=== PATIENT | female | born 1960 | race Caucasian/White ===

== ENCOUNTER 2017-08-04 19:44 | Emergency (ER) | payer OTHER ==
[~2017-08-04] VITALS: Ht 167.6 cm; Wt 64.3 kg
[~2017-08-04 19:44] MED LIST: AVELOX400 MG; COLACE100 MG PO; COMPAZINE10 MG PO; FLEXERIL10 MG PO; Imodium PO; LIDOCAINE-PRIL1 EACH; METOPROLOL SUC100 MG PO; MOTRIN400 MG PO; NORCO 5/3251 TABLET PO; OXYCODONE HCL10 MG PO; OXYCODONE-ACET1 EACH PO; OXYCONTIN10 MG; OxyCODONE PO; PRILOSEC20 MG PO; ROXICODONE5 MG; SIMVASTATIN20 MG PO; STOOL SOFTENER; TOPROL XL50 MG PO; TRAMADOL HCL50 MG PO; TYLENOL REGULA325 MG PO; TYLENOL WITH C1 EACH PO; Toprol XL PO; VICODIN 5-5001 EACH PO; ZANTAC150 MG PO; ZUPLENZ4 MG PO; ZYVOX600 MG PO
[2017-08-04 19:56] VITALS: BP 140/79
[2017-08-04] MEDS ORDERED: PERCOCET 5/31 TABLET PO (21:13)
== END 2017-08-04 22:10 | disposition home or self-care (01) ==
LOC: EME 19:44
DX: S92.404A Nondisplaced unspecified fracture of right great toe, initial encounter for closed fracture (principal); W20.8XXA Other cause of strike by thrown, projected or falling object, initial encounter; Z85.038 Personal history of other malignant neoplasm of large intestine; Z92.21 Personal history of antineoplastic chemotherapy
CPT/HCPCS: 73630; 99281; 99284